=== PATIENT | female | born 1940 | race Caucasian/White ===

== ENCOUNTER → 2016-04-04 | Outpatient (CLI) | payer MEDICARE, MEDICAID ==
[2016-04-04 16:43] LABS: MEAN CORPUSCULAR HEMOGLOBIN 33.1 PG (27.0-31.0); MEAN CORPUSCULAR HGB CONC 34.5 G/DL (32.0-36.0); MEAN CORPUSCULAR VOLUME 96 FL (80-99); MEAN PLATELET VOLUME 6.3 FL (6.5-10.1); PLATELET COUNT 234 K/UL (150-450); RED BLOOD COUNT 3.65 M/UL (4.20-5.40); RED CELL DISTRIBUTION WIDTH 13.6 % (11.6-14.8)
[2016-04-04 16:46] LABS: BASOPHILS % (AUTO) 3.2 % (0.0-2.0); EOSINOPHILS % (AUTO) 2.6 % (0.0-3.0); LYMPHOCYTES % (AUTO) 20.6 % (20.0-45.0); MONOCYTES % (AUTO) 7.7 % (1.0-10.0); NEUTROPHILS % (AUTO) 65.9 % (45.0-75.0)
[2016-04-04 17:42] LABS: ALANINE AMINOTRANSFERASE 13 U/L (3-33); ALBUMIN/GLOBULIN RATIO 1.6 (1.0-2.7); ANION GAP 18 (5-15); ASPARTATE AMINO TRANSFERASE 22 U/L (5-40); CALCIUM 9.4 mg/dL (8.6-10.2); CARBON DIOXIDE 25 mEQ/L (20-30); CHLORIDE 96 mEQ/L (98-107); CHOLESTEROL 279 mg/dL (< 200); CREATININE 1.1 mg/dL (0.5-0.9); HEMOLYSIS 4; POTASSIUM 3.3 mEQ/L (3.4-4.9); SODIUM 139 mEQ/L (135-145); TOTAL PROTEIN 7.2 g/dL (6.6-8.7)
[2016-04-04 18:10] LABS: CHOLESTEROL/HDL RATIO 2.4 (3.3-4.4); LDL CHOLESTEROL (CALC.) 151 mg/dL (60-99)
== END | disposition home or self-care (01) ==
LOC: LAB 15:51
DX: I50.33 Acute on chronic diastolic (congestive) heart failure (principal); E78.5 Hyperlipidemia, unspecified; E11.65 Type 2 diabetes mellitus with hyperglycemia
CPT/HCPCS: 36415; 80053; 80061; 83036; 83880; 84443; 85025

== ENCOUNTER → 2016-12-03 | Outpatient (CLI) | payer MEDICARE, MEDICAID ==
[2016-12-03 12:18] LABS: BASOPHILS % (AUTO) 1.2 % (0.0-2.0); EOSINOPHILS % (AUTO) 2.1 % (0.0-3.0); MEAN CORPUSCULAR HEMOGLOBIN 31.1 PG (27.0-31.0); MEAN CORPUSCULAR HGB CONC 31.9 G/DL (32.0-36.0); MEAN CORPUSCULAR VOLUME 97 FL (80-99); MEAN PLATELET VOLUME 6.1 FL (6.5-10.1); MONOCYTES % (AUTO) 12.3 % (1.0-10.0); NEUTROPHILS % (AUTO) 70.5 % (45.0-75.0); PLATELET COUNT 238 K/UL (150-450); RED BLOOD COUNT 3.65 M/UL (4.20-5.40); RED CELL DISTRIBUTION WIDTH 12.8 % (11.6-14.8); WHITE BLOOD COUNT 3.8 K/UL (4.8-10.8)
[2016-12-03 12:27] LABS: HEMOGLOBIN A1C 5.7 % (< 6.0)
[2016-12-03 12:30] LABS: ALANINE AMINOTRANSFERASE 15 U/L (3-33); ALBUMIN/GLOBULIN RATIO 1.6 (1.0-2.7); ANION GAP 13 (5-15); ASPARTATE AMINO TRANSFERASE 18 U/L (5-40); CALCIUM 9.6 mg/dL (8.6-10.2); CARBON DIOXIDE 23 mEQ/L (20-30); CHLORIDE 99 mEQ/L (98-107); CREATININE 1.7 mg/dL (0.5-0.9); HEMOLYSIS 2; POTASSIUM 5.2 mEQ/L (3.4-4.9); SODIUM 135 mEQ/L (135-145); TOTAL PROTEIN 7.3 g/dL (6.6-8.7)
[2016-12-03 12:40] LABS: THYROID STIMULATING HORMONE 0.089 uIU/mL (0.300-4.500)
== END | disposition home or self-care (01) ==
LOC: LAB 11:45
DX: I50.33 Acute on chronic diastolic (congestive) heart failure (principal); I48.91 Unspecified atrial fibrillation; D68.8 Other specified coagulation defects; E11.65 Type 2 diabetes mellitus with hyperglycemia
CPT/HCPCS: 36415; 80053; 83036; 84443; 85025; 85610; 85730

== ENCOUNTER 2016-12-10 05:46 | Day surgery (SDC) | payer MEDICARE, MEDICAID ==
[~2016-12-10] VITALS: Ht 160 cm; Wt 131.5 kg
[2016-12-10] VITALS (10 sets, daily range): BP systolic 153–177; BP diastolic 54–82
--- NOTE | 2016-12-10 01:01 | Pre-op HX & Phy Repo 2 SIG ---
DATE OF ADMISSION: 12/10/2016 SURGERY: Right forehead mass. SURGEON: Jorge Gonzales M.D. History Of Present Illness: This is a 76-year-old female, who is to undergo excision of a soft tissue mass over her right forehead. There has been no associated pain or bleeding from the site. PAST MEDICAL HISTORY: Notable for the followin. Hypertensive heart disease. 2. Paroxysmal atrial fibrillation. 3. Permanent pacemaker. 4. Hypothyroidism. 5. Glaucoma. 6. History of cataract surgery. 7. Chronic diastolic congestive heart failure. 8. Hyperlipidemia. 9. Peripheral artery disease. 10. Osteoarthritis. 11. Degenerative disk disease. 12. Chronic kidney disease. 13. Gastroesophageal reflux disease. 14. Status post abdominal hysterectomy and bilateral oophorectomy. 15. Diabetic neuropathy. 16. Non-insulin requiring diabetes mellitus. 17. Morbid obesity. Medications Prior To Admission: Levothyroxine 175 daily, Xarelto 20 daily, dorzolamide and timolol eye drops nightly, Alphagan eye drops 3 times a day, Travatan eye drops once at bedtime, losartan 100 daily, ibuprofen 800 daily p.r.n. pain, amiodarone 200 daily, rosuvastatin 20 daily, hydralazine 50 mg one-half to 1 tablet p.o. q.i.d., omeprazole 40 daily, meloxicam 15 daily alternating with ibuprofen, tramadol 50 t.i.d. p.r.n. severe pain, lactulose 15 mL daily p.r.n. constipation, and nystatin powder to skin creases daily. FAMILY HISTORY: Unremarkable. SOCIAL HISTORY: Negative for smoking, alcohol, or substance abuse. Review Of Systems: No fevers or chills. No history of retinopathy. Her diabetes is diet controlled. She had an echocardiogram as an outpatient in the last 3 months with normal ejection fraction and concentric hypertrophy. Her permanent pacemaker was recently interrogated and functioning appropriately. There is no history of flow-limiting coronary artery disease. She does have microvascular peripheral artery disease. There is no history of asthma or blood clots in the legs. She does have significant venous stasis of the lower extremities with chronic edema. PHYSICAL EXAMINATION: Vital Signs: Weight is 285, height is 5 feet 4 inches, blood pressure 115/60, heart rate 60, respiratory rate 18, and afebrile. HEENT: A soft tissue mass on the right forehead. No associated adenopathy. Conjunctivae pink. Arcus senilis. Oropharynx clear. NECK: Supple and obese. Lungs: With diminished breath sounds. Pendulous breasts. No discrete masses. Cardiac: Regular rhythm and rate. Normal S1. Paradoxically split S2. No murmur. Pacemaker pocket site is clean and dry. ABDOMEN: Obese and soft. Extremities: With 2+ edema, mostly nonpitting. Distal pulses diminished. There are significant deformities of the feet. Some minimal tinea in the crural region. NEUROLOGIC: Nonfocal. DIAGNOSTIC DATA: EKG, atrial paced with right bundle-branch block. LABORATORY DATA: Labs are reviewed. IMPRESSION AND PLAN: 1. This is a 76-year-old female with multiple medical problems. At this time, she is an acceptable candidate for local anesthesia and pursuit of right forehead mass excision. 2. The patient's perioperative risk is minimally increased. She will require close monitoring of cardiopulmonary parameters perioperatively and adjustments of her medications accordingly. She has been advised to discontinue her anticoagulant namely rivaroxaban for at least 3 days preoperatively to reduce bleeding risks and this drug will be resumed immediately postoperatively if there are no surgical complications. John Kirkpatrick M.D. DR: DENNIS JOB#: [id number] CC:
--- NOTE | 2016-12-10 06:22 | Anethesia Preoperative Eval ---
Anesthesia Pre-op PMH/ROS General Date of Evaluation: Dec 10, 2016 Time of Evaluation: 06:19 Anesthesiologist: victor hugo ASA Score: ASA 4 Mallampati Score Class I : Soft palate, uvula, fauces, pillars visible Class II: Soft palate, uvula, fauces visible Class III: Soft palate, base of uvula visible Class IV: Only hard plate visible Mallampati Classification: Class II Surgeon: justino Diagnosis: soft tissue mass forehead Surgical Procedure: incision of right forehead soft tissue Anesthesia History: none Social History: smoking - nonsmoker Family History: no anesthesia problems Allergies: Coded Allergies: No Known Allergies (Verified Allergy, Mild, 12/01/07) Medications: see eMAR Past Medical History Cardiovascular: Reports: HTN, arrhythmia, other - pacemaker, chf, peripheral artery disease Gastrointestinal/Genitourinary: Reports: GERD, CRI Endocrine: Reports: DM, hypothyroidism HEENT: Reports: cataract (L), glaucoma Musculoskeletal/Integumentary: Reports: OA Other: obesity Anesthesia Pre-op Phys. Exam Physician Exam Constitutional: NAD Neurologic: CN 2-12 intact Cardiovascular: RRR Respiratory: CTA Gastrointestinal: S/NT/ND Airway Exam Mallampati Score: Class II MO: full Neck: supple TMD: 3fb ROM: full Teeth: intact Anesthesia Pre-op A/P Risk Assessment & Plan Assessment: asa4 Plan: gen Status Change Before Surgery: No Pre-Antibiotics Drug: cefazolin Given Within 1 Hr of Incision: Yes JUAN RAMON GARVIN Dec 10, 2016 06:22
[2016-12-10] MEDS ORDERED: VITAMIN D22000 UNIT PO (06:52)
[2016-12-10] MEDS ORDERED: TRAMADOL HCL50 MG ORAL (06:52)
[2016-12-10] MEDS ORDERED: LEVOTHYROXINE150 MCG ORAL (06:52)
[2016-12-10] MEDS ORDERED: SPIRONOLACTONE100 MG ORAL (06:52)
[2016-12-10] MEDS ORDERED: CRESTOR20 MG ORAL (06:52)
[2016-12-10] MEDS ORDERED: HYDRALAZINE HCL50 MG ORAL (06:52)
[2016-12-10] MEDS ORDERED: FUROSEMIDE40 MG ORAL (06:52)
[2016-12-10] MEDS ORDERED: XARELTO10 MG ORAL (06:52)
[2016-12-10] MEDS ORDERED: METOPROLOL SUCC25 MG ORAL (06:52)
[2016-12-10] MEDS ORDERED: OMEPRAZOLE40 M1 ORAL (06:52)
[2016-12-10] MEDS ORDERED: PACERONE200 MG ORAL (06:52)
[2016-12-10] MEDS ORDERED: MELOXICAM15 MG PO (06:52)
[2016-12-10] MEDS ORDERED: IBUPROFEN600 MG ORAL (06:52)
[2016-12-10] MEDS ORDERED: LR 1000ml ONE (07:00)
[2016-12-10] MEDS ORDERED: Lidocaine 1% MPF 10mg/ml 5ml ONE (07:00)
[2016-12-10] MEDS ORDERED: NS Irrig 1000ml ONE (07:00)
[2016-12-10] MEDS ORDERED: Midazolam 2mg/2ml Inj ONE (07:00)
[2016-12-10] MEDS ORDERED: fentaNYL 100 mcg/2 mL IV ONE (07:00)
[2016-12-10] MEDS ORDERED: Sterile Water Irrig 1000ml IRRIG ONE (07:00)
[2016-12-10] MEDS ORDERED: Sodium Chloride 10ml vial INJ ONE (07:00)
[2016-12-10] MEDS ORDERED: Bupivacaine w/Epi 0.5% 30ml Vial INJ ONE (07:05)
--- NOTE | 2016-12-10 07:21 | Pre-Procedure Note/Attestation ---
Pre-Procedure Note/Attestation Complete Prior to Procedure Planned Procedure: right Procedure Narrative: excision right forehead soft tissue mass Attestation right foreheadsoft tissue mass.I attest that I discussed the nature of the procedure; its benefits; risks and complications; and alternatives (and the risks and benefits of such alternatives), prior to the procedure, with the patient (or the patient's legal hospital insurance representative). I attest that, if there was a reasonable possibility of needing a blood transfusion, the patient (or the patient's legal hospital insurance representative) was given the [facility] standardized written summary, pursuant to the Alpesh Granger Blood Safety Act ([place] Health and Safety Code # 1645, as amended). I attest that I re-evaluated the patient just prior to the surgery and that there has been no change in the patient's H&P, except as documented below: CATHI HUGHES Dec 10, 2016 07:21
--- NOTE | 2016-12-10 08:32 | Brief Operative Note ---
Immediate Post Operative Note Operative Note Pre-op Diagnosis: right forehead soft tissue mass. Procedure: Excision right forehead soft tissue mass. Post-op Diagnosis: same Surgeon: justino Anesthesiologist: carmine alarcon Anesthesia: moderate sedation Specimen: yes Complications: none Condition: stable Fluids: LR Estimated Blood Loss: minimal Drains: none Implant(s) used?: No CATHI HUGHES Dec 10, 2016 08:32
--- NOTE | 2016-12-10 09:24 | Immediate Post-Op Evaluation ---
Immediate Post-Op Evalulation Immediate Post-Op Evalulation Procedure: excisionsofttissue mass rightforehead Date of Evaluation: Dec 10, 2016 Time of Evaluation: 08:27 IV Fluids: 150ml lr Blood Products: none Estimated Blood Loss: negligible Blood Pressure Systolic: 188 Blood Pressure Diastolic: 83 Pulse Rate: 70 Respiratory Rate: 18 O2 Sat by Pulse Oximetry: 95 Temperature (Fahrenheit): 97.8 Pain Score (1-10): 0 Nausea: No Vomiting: No Complications none Patient Status: awake, reacts, patent Hydration Status: adequate JUAN RAMON GARVIN Dec 10, 2016 09:24
[2016-12-10] MEDS ORDERED: LR 1000ml 1,000 ML IVLG SCH (09:25)
--- NOTE | 2016-12-10 09:25 | 48 Hour Post Anesthesia Eval ---
Post Anesthesia Evaluation Procedure: excisionsofttissue mass rightforehead Date of Evaluation: Dec 10, 2016 Time of Evaluation: 09:24 Blood Pressure Systolic: 155 0: 70 Pulse Rate: 61 Respiratory Rate: 18 Temperature (Fahrenheit): 97.8 O2 Sat by Pulse Oximetry: 96 Airway: patent Nausea: No Vomiting: No Pain Intensity: 0 Hydration Status: adequate Cardiopulmonary Status: stable Mental Status/LOC: patient returned to baseline Post-Anesthesia Complications: none Follow-up care needed: N/A JUAN RAMON GARVIN Dec 10, 2016 09:25
[2016-12-10] MEDS ORDERED: Midazolam 2mg/2ml Inj IVP PRN (09:30)
[2016-12-10] MEDS ORDERED: Atropine Inj 1mg/10ml Syr IV PRN (09:30)
[2016-12-10] MEDS ORDERED: fentaNYL 100 mcg/2 mL IV PRN (09:30)
[2016-12-10] MEDS ORDERED: Tylenol #3 tab (300mg/30mg) ORAL PRN (15:01)
--- NOTE | 2016-12-10 19:30 | Operative Note - Dictated ---
DATE OF OPERATION: 12/10/2016 SURGEON: Jorge Gonzales M.D. SOCIAL SECURITY SPECIALIST: None. ANESTHESIOLOGIST: Dr. Garber and Dr. Gibbons. ANESTHESIA: A 1% local Xylocaine with epinephrine plus IV sedation. PREOPERATIVE DIAGNOSIS: Right forehead soft tissue mass. POSTOPERATIVE DIAGNOSIS: Right forehead soft tissue mass. NAME OF OPERATION: Excision of right forehead soft tissue mass. Findings And Indications: The patient is an obese 76-year-old female with a history of an increasing size right forehead deforming soft tissue mass. She sought help from her attending physician, Dr. Kirkpatrick, who advised to undergo evaluation and removal. On exam, she had this obvious almost 3 inch in diameter soft tissue mass in the upper right forehead, just below the hairline. Surgery indeed was all removed that was just below the frontalis muscle and it was up against the galea. It was removed in its entirety and sent to pathology with an appearance of a lipomatous structures. Description of Procedure: With the patient lying in the supine position on the operating table, 1% local Xylocaine with epinephrine, with the forehead region prepped and draped in usual sterile fashion with Betadine, a transverse incision following skin lines was carried out. Subcutaneous tissues were divided, the frontalis muscles were divided carefully in the direction of fibers and the lipoma identified and dissected free all the way around down to the galea and removed in its entirety obtaining hemostasis with the cautery. The edges were then washed with normal saline and hemostasis was achieved with the cautery and deep subcutaneous tissues were approximated with 4-0 Vicryl interrupted suture and the skin with 5-0 Vicryl subcuticulars sutures and Steri-Strips. The patient tolerated the procedure well. Estimated blood loss was less than 5 mL. Sponge and needle counts were correct. She went to the recovery room in stable condition. Jorge Gonzales M.D. DR: Chetan JOB#: [id number] CC:
== END 2016-12-10 12:10 | disposition home or self-care (01) ==
LOC: SUR 05:46
DX: D17.0 Benign lipomatous neoplasm of skin and subcutaneous tissue of head, face and neck (principal); I13.0 Hypertensive heart and chronic kidney disease with heart failure and stage 1 through stage 4 chronic kidney disease, or unspecified chronic kidney disease; E11.22 Type 2 diabetes mellitus with diabetic chronic kidney disease; N18.9 Chronic kidney disease, unspecified; I50.32 Chronic diastolic (congestive) heart failure; E11.40 Type 2 diabetes mellitus with diabetic neuropathy, unspecified; Z95.0 Presence of cardiac pacemaker; E03.9 Hypothyroidism, unspecified; E78.5 Hyperlipidemia, unspecified; M19.90 Unspecified osteoarthritis, unspecified site; K21.9 Gastro-esophageal reflux disease without esophagitis; Z90.710 Acquired absence of both cervix and uterus; Z90.722 Acquired absence of ovaries, bilateral; I73.89 Other specified peripheral vascular diseases; I87.8 Other specified disorders of veins; E66.9 Obesity, unspecified; Z68.43 Body mass index [BMI] 50.0-59.9, adult; H40.9 Unspecified glaucoma
CPT/HCPCS: 11443; 12051; J0690; J2250; J3010; J7120; 94003; 94150

== ENCOUNTER → 2018-02-26 | Outpatient (CLI) | payer MEDICARE, MEDICAID ==
[~2018-02-26] MED LIST: CRESTOR20 MG ORAL; FUROSEMIDE40 MG ORAL; HYDRALAZINE HCL50 MG ORAL; IBUPROFEN600 MG ORAL; LEVOTHYROXINE150 MCG ORAL; MELOXICAM15 MG PO; METOPROLOL SUCC25 MG ORAL; OMEPRAZOLE40 M1 ORAL; PACERONE200 MG ORAL; SPIRONOLACTONE100 MG ORAL; TRAMADOL HCL50 MG ORAL; VITAMIN D22000 UNIT PO; XARELTO10 MG ORAL
[2018-02-26 12:55] LABS: BASOPHILS % (AUTO) 1.3 % (0.0-2.0); EOSINOPHILS % (AUTO) 3.3 % (0.0-3.0); HEMATOCRIT 34.2 % (37.0-47.0); LYMPHOCYTES % (AUTO) 14.1 % (20.0-45.0); MEAN CORPUSCULAR VOLUME 94 FL (80-99); MONOCYTES % (AUTO) 10.3 % (1.0-10.0); PLATELET COUNT 278 K/UL (150-450); RED BLOOD COUNT 3.64 M/UL (4.20-5.40); WHITE BLOOD COUNT 4.6 K/UL (4.8-10.8)
[2018-02-26 13:13] LABS: ALANINE AMINOTRANSFERASE 16 U/L (12-78); ALBUMIN 3.6 G/DL (3.4-5.0); ALKALINE PHOSPHATASE 89 U/L (46-116); ANION GAP 10 mmol/L (5-15); ASPARTATE AMINO TRANSFERASE 14 U/L (15-37); BILIRUBIN,TOTAL 0.4 MG/DL (0.2-1.0); BLOOD UREA NITROGEN 20 mg/dL (7-18); CALCIUM 9.1 MG/DL (8.5-10.1); CARBON DIOXIDE 23 MMOL/L (21-32); CHLORIDE 103 MMOL/L (98-107); CHOLESTEROL 213 MG/DL (< 200); CREATININE 1.2 MG/DL (0.55-1.30); HDL CHOLESTEROL 104 MG/DL (40-60); POTASSIUM 4.4 MMOL/L (3.5-5.1); SODIUM 136 MMOL/L (136-145); TRIGLYCERIDES 59 MG/DL (30-150)
== END | disposition home or self-care (01) ==
LOC: LAB 12:06
DX: E11.65 Type 2 diabetes mellitus with hyperglycemia (principal); E03.9 Hypothyroidism, unspecified; E79.0 Hyperuricemia without signs of inflammatory arthritis and tophaceous disease; I10 Essential (primary) hypertension
CPT/HCPCS: 36415; 80053; 80061; 83036; 84439; 84443; 84480; 84550; 85025